=== PATIENT | male | born 1980 ===

== ENCOUNTER 2022-04-06 06:00 | Outpatient (CLI) | payer OTHER ==
--- NOTE | 2022-04-06 17:21 | XRAY Report ---
PROCEDURE: Knee 4 View RT INDICATIONS: RIGHT KNEE PAIN TECHNIQUE: 4 views of the right knee(s) were acquired. COMPARISON: None. FINDINGS: Bones: No fractures or dislocations. No suspicious bony lesions. Questionable slight bilateral med ial compartment narrowing. No erosions. No particular osteophytes. Soft tissues: No joint effusion. No suspicious soft tissue calcifications. IMPRESSION: Questionable slight medial compartment early arthritic change. Reviewed by: Charity Delgado MD on 04/06/2022 5:20 PM PDT Approved by: Charity Delgado MD on 04/06/2022 5:20 PM PDT Station ID: [id number]
== END 2022-04-06 23:59 | disposition home or self-care (01) ==
LOC: DI.WOS 06:00
PROVIDERS: ATTEND Physician Assistant
DX: M25.561 Pain in right knee (principal)